=== PATIENT | male | born 1995 | race Caucasian/White ===

== ENCOUNTER 2016-05-27 13:49 | Emergency (ER) | payer SELFPAY ==
[~2016-05-27] VITALS: Ht 177.8 cm; Wt 59.1 kg
[~2016-05-27 13:49] MED LIST: NOMED
[2016-05-27 14:08] VITALS: BP 137/80; PULSE 83; RESP 12; O2SAT 100
--- NOTE | 2016-05-27 15:47 | ED.REPORT ---
HPI- Male Date of Service May 27, 2016 ED Provider: Doc,Ed MD History of Present Illness: thinks he has an STD, frequent urination, denies discharge. denies pain in scrotal area. no primary care. denies fever. ongoing times a few months. states last sexual encounter was a year ago. Nursing Notes Stated Complaint: CHECK UP Chief Complaint: General Complaint Nursing Notes Reviewed: Yes Allergies: Coded Allergies: No Known Allergies (Unverified Allergy, 01/01/12) Miscellaneous Medications No Historical Medication (No Historical Medication) Ea General Time Seen by MD: 15:46 Chief Complaint Urinary frequency Hx Obtained From: Patient Onset Occurred: More than a week ago... (2 months) Symptom Duration: More than a week... (2 months) Past Medical History Past Medical History Denies: Asthma Past Surgical History denies Smoking History Current Every Day Smoker (thc daily) Social History Alcohol Use: "Social" Drug Use: THC Occupation lives with parents, no work or school at present Ambulatory Status Independent Review of Systems Basic Review of Systems Eyes: Vision NL Respiratory: No shortness of breath Cardiovascular: No chest pain Hematologic: No bleeding Psychiatric: Normal thought content Physical Exam Initial Vital Signs Vital Signs (First) Date Time Temp Pulse Resp B/P Pulse Ox O2 Delivery O2 Flow Rate FiO2 05/27/16 14:08 36.4 83 12 137/80 100 Room Air Initial VS: Reviewed, Vital signs normal General/Constitutional: Well-developed, Well-nourished Head / Eyes: Atraumatic, Normocephalic, PERRL ENT: Mucous membranes moist, Conjunctiva normal, No scleral icterus Neck: Supple, Non-tender, Full range of motion Respiratory: Breath sounds normal, Clear to auscultation, No respiratory distress Cardiovascular: Regular rate & rhythm, Heart sounds normal, Intact distal pulses Abdomen / GI: Soft, Non-tender, No guarding, No rebound, No distention Back: No CVA tenderness Lymphatic: No lymphadenopathy Extremities: Vascular intact, Neuro intact, No swelling, No tenderness Skin: Warm, Dry, No cyanosis Neurologic: Alert, Oriented, Nonfocal Psychiatric: Mood/affect normal, Behavior normal, Normal thought content Male Genitourinary: Atraumatic, Inspection NL, Penis NL, No penile discharge, Testes NL, Cremasteric reflex NL, Epididymis NL, No mass, No hernia patient is circumsized General/Constitutional: Awake, Alert, No acute distress, Well appearing, Well developed, Well hydrated, Well nourished, Cooperative, Not toxic appearing Abdomen: Atraumatic, Soft, Non-tender, McBurney's non-tender, No guarding, No rebound, BS normoactive, No distention, No hernia, No palpable mass, No pulsatile mass Skin: Atraumatic, Color NL, No rash Respiratory / Chest: Atraumatic, Breath sounds NL, Breath sounds = bilat, No respiratory distress Cardiovascular: Heart rate NL, Regular rhythm, Heart sounds NL, No gallop Interpretation & Diagnostics Lab Results Interpretation Test 05/27/16 15:48 Urine Color Yellow (YELLOW) Urine Appearance Hazy (CLEAR,HAZY) Urine pH 6.0 (5.0-8.0) Urine Specific [place] >1.030 (1.003-1.035) Urine Protein Negativemg/dL (NEG,TRACE) Urine Glucose (UA) Negativemg/dL (NEGATIVE) Urine Ketones 15mg/dL (NEGATIVE) Urine Occult Blood Negative (NEGATIVE) Urine Nitrite Negative (NEGATIVE) Urine Bilirubin Negative (NEGATIVE) Urine Urobilinogen Normalmg/dL (NORMAL) Urine Leukocyte Esterase Negative (NEGATIVE) Urine RBC 0-2/hpf (0-2) Urine WBC 0-5/hpf (0-5) Urine Epithelial Cells Few/hpf (NONE-MOD) Urine Crystals None seen (NONE SEEN) Urine Bacteria Few/hpf (NONE-FEW) Urine Hyaline Casts None/lpf (NONE) Urine Granular Casts None seen (NONE SEEN) Urine Waxy Casts None seen (NONE SEEN) Urine Red Blood Cell Casts None seen (NONE SEEN) Urine White Blood Cell Casts None seen (NONE SEEN) Urine Mucus Present (None Seen) Urine Trichomonas None seen (NONE SEEN) Urine Yeast None (NONE SEEN) Urinalysis Comment Amorphous sediment Urine Culture Reflexed Not indicated Hold Urine Received (Received) Lab Results Interpretation: urine is negative , GC CL is pending Re-Eval/Medical Decision Med Decision/Clinical Course patient reporting frequency and belief that he has an STD. Exam does not reveal any swelling or evidence of any hydrocele or discharge. No visual sign of HPV. Patient treated in ER for GC, and CL. Encouraged to establish in primary care to address frequency and health maintenance concerns. Differential Diagnosis: Negative: Adhesions-foreskin, Condyloma, Cystitis, acute, Epididymitis, Epididymitis/orchitis, Hydrocele, Inguinal hernia left, Inguinal hernia right Discharge & Departure Impression: Primary Impression: Frequency of urination Disposition: Home Patient Instructions: Sexually Transmitted Diseases (ED) Additional Instructions: You have been treated in the ED for sexually transmitted infections. Your urine is being tested for any, but you have been treated. The urine does not show any sign of infection. Your urine shows that you could increase your fluid. Please establish with primary care, consider [facility]. If your urine comes back positive for infection, we will call you. Referrals: [facility] EDSupervising Provider for APC: Stefan Robin MD copies to: [facility] Taylor Macias May 27, 2016 15:47
[2016-05-27] MEDS ORDERED: cefTRIAXone Inj 250 MG, Lidocaine PF 1% Inj 0.9 ML in Syringe 1 EACH IM ONE (16:05)
[2016-05-27 16:32] LABS: APPEARANCE,URINE HAZY (CLEAR,HAZY); COLOR,URINE YELLOW (YELLOW); OCCULT BLOOD,URINE NEGATIVE (NEGATIVE); UROBILINOGEN,URINE NORMAL (NORMAL)
== END 2016-05-27 16:59 | disposition home or self-care (01) ==
LOC: SED 13:49
DX: R35.0 Frequency of micturition (principal); F17.200 Nicotine dependence, unspecified, uncomplicated
CPT/HCPCS: 81000; 96372; 99284; J0696